=== PATIENT | female | born 1965 | race Hispanic/Latino ===

== ENCOUNTER 2020-05-10 22:26 | Emergency (ER) | payer SELFPAY ==
[2020-05-10] MEDS ORDERED: ASPIRIN 325 MG TAB PO ONE (22:57)
[2020-05-10 22:59] VITALS: BP 112/54
[2020-05-10 23:28] LABS: Hematocrit 41.8 % (30.3-42.9); Hemoglobin 14.9 gm/dl (10.1-14.3); Mean Corpuscular HGB Conc 36 % (30-34); Mean Corpuscular Volume 92 fl (79-97); Platelet Count 308 K/mm3 (140-440); Red Blood Count 4.55 M/mm3 (3.65-5.03); Red Cell Distribution Width 13.8 % (13.2-15.2)
[2020-05-10 23:45] LABS: BUN/Creatinine Ratio 16; Blood Urea Nitrogen 14 mg/dL (7-17); Calcium 9.5 mg/dL (8.4-10.2); Hemolysis Index 4
[2020-05-11 02:33] LABS: Total Cells Counted 100
[2020-05-11 02:34] LABS: Platelet Estimate Consistent w Auto
== END 2020-05-10 23:25 | disposition left against medical advice (07) ==
LOC: ED 22:26
DX: R07.9 Chest pain, unspecified (principal); Z53.21 Procedure and treatment not carried out due to patient leaving prior to being seen by health care provider
CPT/HCPCS: 36415; 80048; 84484; 85007; 85025; 93005